=== PATIENT | male | born 1945 | race Caucasian/White ===

== ENCOUNTER → 2021-01-12 | Outpatient (CLI) | payer MEDICARE, OTHER ==
[~2021-01-12] MED LIST: CYMBALTA60 MG PO; DILAUDID 2 MG TA2 MG PO; FOLIC ACID1 MG PO; INDOMETHACIN50 MG PO; LEVAQUIN500 MG PO; LIPITOR TAB 1010 MG PO; MAG-OX 400 TAB400 MG PO; NEURONTIN 300300 MG PO; THERAGRAN TAB1 EA PO; ZANTAC300 MG PO; ZYLOPRIM300 MG PO
== END ==
LOC: US 08:23 → CATH 10:00
DX: R42 Dizziness and giddiness (principal); I95.1 Orthostatic hypotension; I65.23 Occlusion and stenosis of bilateral carotid arteries
CPT/HCPCS: 93880

== ENCOUNTER → 2021-02-20 | Outpatient (CLI) | payer MEDICARE, OTHER | LOC: KOH-I 08:13 | DX: R10.11 Right upper quadrant pain (principal); K76.0 Fatty (change of) liver, not elsewhere classified | CPT/HCPCS: 76705 ==

== ENCOUNTER → 2022-02-13 | Outpatient (CLI) | payer MEDICARE, OTHER | LOC: HEART 5 14:39 | DX: R55 Syncope and collapse (principal); I44.2 Atrioventricular block, complete; I27.20 Pulmonary hypertension, unspecified; I08.1 Rheumatic disorders of both mitral and tricuspid valves | CPT/HCPCS: 93306 ==